=== PATIENT | male | born 1980 | race Caucasian/White ===

== ENCOUNTER 2021-03-17 02:02 | Emergency (ER) | payer MEDICAID, SELFPAY ==
[2021-03-17 02:16] VITALS: BP 154/100; PULSE 71; RESP 16; TEMP 36.7; O2SAT 96; BMI 26.5
--- NOTE | 2021-03-17 03:11 | ED.DENTAL ---
HPI - Dental/Oral General Chief complaint: Dental/Oral Stated complaint: tooth pain Time Seen by Provider: 03/17/21 02:13 Source: patient Mode of arrival: ambulatory History of Present Illness HPI Narrative: This is a 40-year-old male with right lower dental mandi at number 30 without fevers, chills, trismus. Related Data Previous Rx's Medication Instructions Recorded amoxicillin-pot clavulanate 1 tab PO Q12H 5 Days #10 tab 03/17/21 [Augmentin] Allergies Allergy/AdvReac Type Severity Reaction Status Date / Time No Known Allergies Allergy Verified 03/17/21 02:20 Review of Systems Review of Systems: Pertinent positives and negatives as stated in HPI and 10 point review of systems is otherwise negative. [facility] Past Medical History Source: nursing notes reviewed Medical History Hypertension Social History Social History Alcohol intake: unknown Patient Tobacco Use Status: Tobacco use Unknown Use of substances other than those prescribed or required for medical reasons: Unknown Advance Directives: No Physical Exam Vital Signs: Vital Signs: Last Vital Signs Temp 98.0 F 03/17/21 02:16 Pulse 71 03/17/21 02:16 Resp 16 03/17/21 02:16 BP 154/100 H 03/17/21 02:16 Pulse Ox 96 03/17/21 02:16 Body Mass Index 26.5 VITAL SIGNS: Reviewed. GENERAL: Well developed, well nourished, in no acute distress. HEAD: Normocephalic/atraumatic EYES: PERRLA, EOMI EARS: Ext canals without abnormality, TMs non-bulging and non-erythematous NOSE: Nares patent bilateral OROPHARYNX: no oral lesions noted, posterior pharynx clear, broken tooth with mildly erythematous gingiva NECK: Supple, no adenopathy LUNGS: Normal breath sounds. CARDIOVASCULAR: Regular rate and rhythm without noted murmurs ABDOMEN: Soft, non-tender, non-distended with bowel sounds. Course Course Course Narrative: 40-year-old male given benzocaine, initial antibiotics and then sent remaining antibiotics over to pharmacy. Discharged in stable condition Discharge Plan Discharge Clinical Impression: Dental caries, Toothache Patient Disposition: Home, Self-Care Instructions: Toothache (ED) Additional Instructions: Resume all home medications. Follow-up with the dentist 1st thing in the morning. Tylenol 1000 mg, orally, every 6 hours as needed for pain control. Do not exceed 4000 mg within 24 hours. Ibuprofen 400 mg, orally with milk or food, every 6 hours as needed for pain control. Take this medication in combination with the Tylenol for additional symptom relief. Return to the ER for any acute worsening of symptoms. Prescriptions: New amoxicillin-pot clavulanate [Augmentin] 875-125 mg tablet 1 tab PO Q12H 5 Days Qty: 10 RF: 0 Referrals: Physician,Unknown [Primary Care Provider] - 2 days Interventions: ED Discharge Assessment Last Done: 03/17/21 03:45 Discharge Date/Time: 03/17/21 03:46
[2021-03-17] MEDS: Amoxicillin/Potassium Clav 875 MG TABLET PO (03:31)
[2021-03-17] MEDS: Acetaminophen 325 MG TABLET 975 MG PO (03:31)
[2021-03-17] MEDS: Ketorolac Tromethamine 15 MG/ML VIAL IM (03:31)
== END 2021-03-17 03:46 | disposition home or self-care (01) ==
PROVIDERS: Emergency Provider Student in an Organized Health Care Education/Training Program
DX: K02.9 Dental caries, unspecified (principal); K08.89 Other specified disorders of teeth and supporting structures; I10 Essential (primary) hypertension
CPT/HCPCS: 96372; 99284; J1885